=== PATIENT | male | born 1995 | race Caucasian/White ===

== ENCOUNTER 2020-12-01 20:29 | Emergency (ER) | payer SELFPAY ==
[2020-12-01] MEDS ORDERED: Ketorolac Tromethamine 30 MG/ML VIAL ONE (21:27)
[2020-12-01] MEDS ORDERED: Metoclopramide HCl 10 MG/2 ML VIAL ONE (21:27)
[2020-12-01] MEDS ORDERED: diphenhydrAMINE 50 MG/ML VIAL ONE (21:27)
== END 2020-12-01 22:23 | disposition home or self-care (01) ==
LOC: CSHERS 20:29
DX: R51.9 Headache, unspecified (principal); R11.10 Vomiting, unspecified
CPT/HCPCS: 70450; 96365; 96375; J1200; J1885; J2765

== ENCOUNTER 2022-11-25 18:29 | Emergency (ER) | payer SELFPAY ==
[2022-11-25] MEDS ORDERED: Boostrix 0.5 ML (Tdap) VIAL (>/=7 yrs of age) ONE (19:26)
== END 2022-11-25 19:40 | disposition home or self-care (01) ==
LOC: CSHERS 18:29
DX: S61.032A Puncture wound without foreign body of left thumb without damage to nail, initial encounter (principal); W29.4XXA Contact with nail gun, initial encounter
CPT/HCPCS: 90471; 90715

== ENCOUNTER 2023-12-02 09:58 | Emergency (ER) | payer SELFPAY ==
[2023-12-02] MEDS ORDERED: Ketorolac Tromethamine 30 MG (1 mL) VIAL ONE (11:52)
[2023-12-02 11:56] LABS: #Basophils 0.05 10x3/uL (0.0-0.2); #Monocytes 0.76 10x3/uL (0.0-1.1); #Neutrophils 4.03 10x3/uL (1.5-8.4); %Basophils 0.6 % (0.0-2.0); %Eosinophils 3.5 % (0.0-6.0); %Lymphocytes 39.2 % (18.0-47.0); %Monocytes 8.9 % (0.0-10.0); %Neutrophils 47.3 % (40.0-75.0); ALT (SGPT) 28 U/L (8-55); AST (SGOT) 21 U/L (5-34); Albumin 4.3 g/dL (3.5-5.0); Alkaline Phosphatase 85 U/L (40-110); Anion Gap 12 mmol/L (10-20); BUN (Urea Nitrogen) 13 mg/dL (8.9-20.6); Bilirubin, Total 0.5 mg/dL (0.2-1.2); Calc. Creatinine Clearance 0 mL/min (70-130); Calcium 10.1 mg/dL (7.8-10.44); Carbon Dioxide 26 mmol/L (22-29); Chloride 104 mmol/L (98-107); Estimated GFR 103; Globulin 2.9 g/dL (2.4-3.5); Glucose 89 mg/dL (70-105); Hematocrit 43.9 % (38.8-50.0); Hemoglobin 14.5 g/dL (13.5-17.5); Mean Corpuscular Hemoglobin 27.9 pg (27.0-33.0); Mean Corpuscular Volume 84.4 fL (81.2-95.1); Mean Platelet Volume 9.1 fL (7.4-10.4); Platelet Count 319 10x3/uL (150-450); Potassium 4.2 mmol/L (3.5-5.1); Protein, Total 7.2 g/dL (6.0-8.3); RBC Distribution Width 12.7 % (11.5-14.5); Sodium 138 mmol/L (136-145); White Blood Cell (WBC) Count 8.5 10x3/uL (3.5-10.5)
[2023-12-02 12:07] LABS: Bilirubin Neg (Negative); Blood, Urine Negative (Negative); Glucose, Urine (Dipstick) Normal (Negative); Ketone, Urine Negative (Negative); Leukocyte Negative (Negative); Nitrite Negative (Negative); Protein, Urine (Dipstick) Negative (Neg-Trace); Urobilinogen Normal mg/dL (Less than 2)
[2023-12-02 12:13] LABS: Lipase 21 U/L (8-78)
[2023-12-02 12:19] LABS: Clarity Clear (Clear)
[2023-12-02 12:38] LABS: Bacteria/HPF Rare-Few HPF (None Seen); CAUTI Indications for Culture Pelvic or flank pain; RBC/HPF 0-3 HPF (0-3); Squamous Epithelial 0-3 HPF (0-3); WBC/HPF 0-3 HPF (0-3)
[2023-12-02 12:39] LABS: Urine Culture Reflex No No
[2023-12-02] MEDS ORDERED: Famotidine 20 MG TAB ONE (14:02)
== END 2023-12-02 14:18 | disposition home or self-care (01) ==
LOC: CSHERS 09:58
DX: R10.30 Lower abdominal pain, unspecified (principal); R19.7 Diarrhea, unspecified
CPT/HCPCS: 74177; 80053; 81001; 83690; 83735; 85025; 96361; 96374; J1885

== ENCOUNTER 2024-09-25 07:35 | Emergency (ER) | payer BC, SELFPAY ==
[2024-09-25] MEDS ORDERED: Ketorolac Tromethamine 30 MG (1 mL) VIAL ONE (08:00)
[2024-09-25] MEDS ORDERED: Methocarbamol 500 MG TAB ONE (08:00)
== END 2024-09-25 09:00 | disposition home or self-care (01) ==
LOC: CSHERS 07:35
DX: M77.32 Calcaneal spur, left foot (principal); M77.31 Calcaneal spur, right foot
CPT/HCPCS: 96372; 99283; J1885